=== PATIENT | female | born 1975 | race Caucasian/White ===

== ENCOUNTER 2021-06-05 09:22 | Emergency (ER) | payer OTHER ==
[2021-06-05 10:41] LABS: HCG,QUALITATIVE URINE Negative
[2021-06-05 10:46] VITALS: BP 111/78; PULSE 68; TEMP 98.8; BMI 29.8
[2021-06-05 10:51] LABS: BASO % 1.1 % (0-2.0); EOS % 1.9 % (0-4.5); HEMATOCRIT 37.2 % (32.4-45.2); HEMOGLOBIN 12.1 GM/dl (10.7-15.3); LYMPH % 21.7 % (8-40); MCH 31.7 pg (25.7-33.7); MCHC 32.5 g/dl (32.0-36.0); MEAN CELL VOLUME 97.8 fl (80-96); MEAN PLT VOLUME 8.3 fl (7.5-11.1); MONO % 7.3 % (3.8-10.2); PLATELET COUNT 287 10^3/uL (134-434); RBC 3.81 M/mm3 (3.60-5.2); RDW 12.3 % (11.6-15.6); WHITE BLOOD COUNT 6.9 K/mm3 (4.0-10.8)
[2021-06-05 10:56] LABS: EPITHELIAL CELLS MODERATE /hpf
[2021-06-05 10:59] LABS: ALBUMIN 3.8 g/dl (3.4-5.0); BILIRUBIN,TOTAL 0.4 mg/dl (0.2-1); CALCIUM 8.9 mg/dl (8.5-10); CREATININE 0.6 mg/dl (0.55-1.3); TOT PROT 6.6 g/dl (6.4-8.2)
== END 2021-06-05 12:48 | disposition home or self-care (01) ==
LOC: FER 09:22
DX: N93.9 Abnormal uterine and vaginal bleeding, unspecified (principal); N83.209 Unspecified ovarian cyst, unspecified side
CPT/HCPCS: 36415; 76830-TC; 80053; 81003; 81015; 84703; 85025; 86850; 86900; 86901; 99284-25